=== PATIENT | male | born 1950 | race Caucasian/White ===

== ENCOUNTER 2024-09-26 21:08 | Inpatient (IN) | payer OTHER ==
[~2024-09-26] VITALS: Ht 182.9 cm; Wt 93.2 kg
[2024-09-26 23:05] LABS: PLATELET COUNT (AUTO) 261 K/uL (150-450); RED BLOOD CELL COUNT(AUTO) 3.80 MIL/uL (4.50-5.90); RED CELL DISTRIBUTION WIDTH 14.1 % (11.5-14.5); WHITE BLOOD COUNT (AUTO) 10.0 K/uL (4.5-11.0)
[2024-09-26 23:11] LABS: CALCIUM, TOTAL 8.7 mg/dL (8.8-10.5); CREATININE 1.27 mg/dL (0.60-1.30); GLOMERULAR FILTR. RATE CALC 56.0 mL/min (>60); GLUCOSE,RANDOM 134.0 mg/dL (70-110); SODIUM SERUM 136.0 mmol/L (136-145); UREA NITROGEN, BLOOD 24.0 mg/dL (7-18)
[2024-09-26 23:17] LABS: ASPARTATE AMINOTRANSFERASE 15.0 U/L (15-37); TOTAL PROTEIN, SERUM 7.0 g/dL (6.4-8.2)
[2024-09-27] MEDS: IOHEXOL 9 MG/ML 500 ML BOTTLE PO ONE
[2024-09-27] MEDS ORDERED: SODIUM CHLORIDE 0.9% 100 ML ONE (00:24)
[2024-09-27] MEDS: ONDANSETRON HCL 4 MG/2 ML VIAL IVP ONE (04:08)
[2024-09-27] MEDS: PIPERACILLIN SODIUM/TAZOBACTAM 4.5 GM in DEXTROSE 5%-WATER 100 ML IV ONE (04:49)
[2024-09-27] MEDS: SODIUM CHLORIDE 0.9% 1,000 ML IV ONE ×2 (04:49→12:54)
[2024-09-27 05:50] LABS: ALCOHOL, URINE DRUG SCREEN NEGATIVE (NEGATIVE); AMPHET/METH SCREEN,URINE NEGATIVE (NEGATIVE); BARBITURATE SCREEN, URINE NEGATIVE (NEGATIVE); CANNABINOID SCREEN,URINE NEGATIVE (NEGATIVE); COCAINE SCREEN,URINE NEGATIVE (NEGATIVE); METHADONE SCREEN, URINE NEGATIVE (NEGATIVE)
[2024-09-27 06:01] LABS: APPEARANCE,URINE CLEAR (CLEAR); GLUCOSE, URINE (UA) >=1000 mg/dL (NEGATIVE); LEUKOCYTE ESTERASE ,URINE MODERATE (NEGATIVE); NITRATE,URINE NEGATIVE (NEGATIVE); OCCULT BLOOD,URINE NEGATIVE (NEGATIVE); PH,URINE DRUG SCREEN 7.0 (5.0-8.0); SPECIFIC GRAVITIY, URINE 1.019 (1.003-1.030)
[2024-09-27 06:03] LABS: AMORPHOUS SEDIMENT,UR Few /LPF (None Seen); SQUAMOUS EPITHELIAL CELL,UR Rare /LPF (None Seen)
[2024-09-27] MEDS ORDERED: ZOLPIDEM TARTRATE 5 MG TABLET PO PRN (06:30)
[2024-09-27] MEDS ORDERED: ONDANSETRON HCL 4 MG/2 ML VIAL IVP PRN ×2 (06:30→10:00)
[2024-09-27] MEDS ORDERED: ACETAMINOPHEN 325 MG TABLET PO PRN ×2 (06:30→10:00)
[2024-09-27] MEDS ORDERED: MAGNESIUM HYDROXIDE SUSPENSION 30 ML UDCUP PO PRN (06:30)
[2024-09-27] MEDS ORDERED: BISACODYL 10 MG RECTAL RECTAL SUPPOSITORY PR PRN (06:30)
[2024-09-27] MEDS: MORPHINE SULFATE 2 MG/ML SYRINGE IVP PRN ×2 (07:46→13:37)
[2024-09-27] MEDS: HEPARIN SODIUM,PORCINE 5,000 UNITS/ML VIAL SQ SCH (07:48)
[2024-09-27] MEDS: VANCOMYCIN 1.75GM/WATER(PEG) 350 ML IV ONE (07:48)
[2024-09-27] MEDS: PANTOPRAZOLE SODIUM 40 MG DR TABLET PO SCH (07:49)
[2024-09-27] MEDS: DOCUSATE SODIUM 100 MG CAPSULE PO SCH ×2 (07:49→20:11)
[2024-09-27] MEDS ORDERED: DEXTROSE 50%-WATER 25 GM/50 ML SYRINGE IVP PRN (10:00)
[2024-09-27] MEDS ORDERED: SODIUM CHLORIDE 0.9% 500 ML IV ONE (11:21)
[2024-09-27 12:10] LABS: GLUCOMETER DEV NAME(LOC) 6S.1D; GLUCOSE,POINT OF CARE 128 MG/DL (70-110)
[2024-09-27] MEDS ORDERED: DICL100G60 TP (12:38)
[2024-09-27] MEDS ORDERED: INSLAN SQ (12:38)
[2024-09-27] MEDS ORDERED: FERR325T27 PO (12:38)
[2024-09-27] MEDS ORDERED: NITR0.4T52 SL (12:38)
[2024-09-27] MEDS ORDERED: AMLO-257 PO (12:38)
[2024-09-27] MEDS ORDERED: ROPI2TAB26 PO (12:38)
[2024-09-27] MEDS ORDERED: ACET-2247 PO (12:38)
[2024-09-27] MEDS ORDERED: COLL1PAC16 TP (12:38)
[2024-09-27] MEDS ORDERED: PREG75 PO (12:38)
[2024-09-27] MEDS ORDERED: MORP-130 PO (12:38)
[2024-09-27] MEDS ORDERED: MAGN400T57 PO (12:38)
[2024-09-27] MEDS ORDERED: POLY17PO47 PO (12:38)
[2024-09-27] MEDS ORDERED: ATOR40TA28 PO (12:38)
[2024-09-27] MEDS ORDERED: EMPA10TA3 PO (12:38)
[2024-09-27] MEDS ORDERED: PHEN28OI9 TP (12:38)
[2024-09-27] MEDS ORDERED: SENN-376 PO (12:38)
[2024-09-27] MEDS ORDERED: LEVA15HF3 PO (12:38)
[2024-09-27] MEDS ORDERED: CAPS60CR3 TP (12:38)
[2024-09-27] MEDS ORDERED: LOPE-232 PO (12:38)
[2024-09-27] MEDS ORDERED: CARV3 PO (12:38)
[2024-09-27] MEDS ORDERED: LACT10SO85 PO (12:38)
[2024-09-27] MEDS ORDERED: ONDA-104 PO (12:38)
[2024-09-27] MEDS ORDERED: PANT-31 PO (12:38)
[2024-09-27] MEDS ORDERED: LOSA-382 PO (12:38)
[2024-09-27] MEDS ORDERED: OMEG100033 PO (12:38)
[2024-09-27] MEDS ORDERED: HYPR15DR24 OU (12:38)
[2024-09-27] MEDS ORDERED: ASPI-1450 PO (12:38)
[2024-09-27] MEDS ORDERED: DOCU-385 PO (12:38)
[2024-09-27] MEDS ORDERED: LIDO-57 TP (12:38)
[2024-09-27] MEDS ORDERED: FINA-27 PO (12:38)
[2024-09-27] MEDS ORDERED: TRIA16.911 NASAL (12:45)
[2024-09-27] MEDS ORDERED: TERA2CAP10 PO (12:45)
[2024-09-27] MEDS ORDERED: TIMO5DRO20 OU (12:45)
[2024-09-27] MEDS ORDERED: TAMS0.4C94 PO (12:45)
[2024-09-27] MEDS ORDERED: TIOT185 IH (12:45)
[2024-09-27] MEDS: PIPERACILLIN/TAZO 3.375 GM/D5W 50 ML IV SCH (12:54)
[2024-09-27] MEDS: PEG 3350/NA SULF,BICARB,CL/KCL 4000 ML SOLUTION PO ONE (13:58)
[2024-09-27] MEDS: INSULIN LISPRO 100 UNITS/ML SQ PRN (17:21)
[2024-09-27 18:40] LABS: GLUCOMETER DEV NAME(LOC) 6S.1D; GLUCOSE,POINT OF CARE 197 MG/DL (70-110)
[2024-09-27 19:45] VITALS: BP 125/69; PULSE 61; RESP 20; TEMP 97.5; O2SAT 100
[2024-09-27] MEDS: PREGABALIN 75 MG CAPSULE PO SCH (20:10)
[2024-09-27] MEDS: VANCOMYCIN 750 MG/WATER(PEG) 150 ML IV SCH (20:10)
[2024-09-27] MEDS: TERAZOSIN HCL 2 MG CAPSULE PO SCH (20:11)
[2024-09-27 22:41] LABS: GLUCOMETER DEV NAME(LOC) 6S.2; GLUCOSE,POINT OF CARE 151 MG/DL (70-110)
[2024-09-28 04:45] VITALS: BP 126/63; PULSE 69; RESP 20; TEMP 97.5; O2SAT 100
[2024-09-28 07:14] LABS: PLATELET COUNT (AUTO) 227 K/uL (150-450); RED BLOOD CELL COUNT(AUTO) 3.75 MIL/uL (4.50-5.90); RED CELL DISTRIBUTION WIDTH 13.8 % (11.5-14.5); WHITE BLOOD COUNT (AUTO) 6.1 K/uL (4.5-11.0)
[2024-09-28 07:19] LABS: CALCIUM, TOTAL 8.5 mg/dL (8.8-10.5); CREATININE 1.10 mg/dL (0.60-1.30); GLOMERULAR FILTR. RATE CALC > 60 mL/min (>60); GLUCOSE,RANDOM 123 mg/dL (70-110); SODIUM SERUM 137 mmol/L (136-145); UREA NITROGEN, BLOOD 12 mg/dL (7-18)
[2024-09-28 07:21] LABS: GLUCOMETER DEV NAME(LOC) 6S.2; GLUCOSE,POINT OF CARE 146 MG/DL (70-110)
[2024-09-28] MEDS: PANTOPRAZOLE SODIUM 40 MG/VIAL IVP SCH (07:42)
[2024-09-28 07:55] VITALS: BP 128/72; PULSE 71; RESP 20; TEMP 97.5; O2SAT 100
[2024-09-28] MEDS: VANCOMYCIN 1GM/WATER(PEG/NADA) 200 ML IV SCH (08:50)
[2024-09-28] MEDS: HYDROCODONE/ACETAMINOPHEN 5-325 MG TABLET PO PRN (11:35)
[2024-09-28 14:16] LABS: GLUCOMETER DEV NAME(LOC) 6S.2; GLUCOSE,POINT OF CARE 150 MG/DL (70-110)
[2024-09-28] MEDS ORDERED: RINGERS SOLUTION,LACTATED 1,000 ML IV ONE (14:41)
[2024-09-28] MEDS: ETHYL ALCOHOL 62% ANTISEPTIC NASAL SANITIZER 0.6 ML AMPUL NASAL ONE (14:45)
[2024-09-28] MEDS: CHLORHEXIDINE GLUCONATE 2% TOWELETTE [2'S/6'S] TP ONE (14:45)
[2024-09-28] MEDS ORDERED: FentaNYL CITRATE PF 100 MCG/2 ML VIAL IVP PRN (15:45)
[2024-09-28] MEDS ORDERED: MEPERIDINE-PF 25 MG/ML VIAL IVP PRN (15:45)
[2024-09-28 19:50] VITALS: BP 143/77; PULSE 65; RESP 18; TEMP 97.5; O2SAT 100
[2024-09-28] MEDS: OXYGEN THERAPY IH SCH (20:00)
[2024-09-29 00:40] LABS: GLUCOMETER DEV NAME(LOC) 6S.2; GLUCOSE,POINT OF CARE 243 MG/DL (70-110)
[2024-09-29 04:23] VITALS: BP 115/60; PULSE 62; RESP 18; TEMP 98; O2SAT 100
[2024-09-29 06:21] LABS: GLUCOMETER DEV NAME(LOC) 6S.2; GLUCOSE,POINT OF CARE 204 MG/DL (70-110)
[2024-09-29 06:21] LABS: GLUCOMETER DEV NAME(LOC) 6N.2C; GLUCOSE,POINT OF CARE 144 MG/DL (70-110)
[2024-09-29 06:59] LABS: PLATELET COUNT (AUTO) 233 K/uL (150-450); RED BLOOD CELL COUNT(AUTO) 3.63 MIL/uL (4.50-5.90); RED CELL DISTRIBUTION WIDTH 13.9 % (11.5-14.5); WHITE BLOOD COUNT (AUTO) 7.6 K/uL (4.5-11.0)
[2024-09-29 07:06] LABS: CALCIUM, TOTAL 8.2 mg/dL (8.8-10.5); CREATININE 0.98 mg/dL (0.60-1.30); GLOMERULAR FILTR. RATE CALC > 60 mL/min (>60); GLUCOSE,RANDOM 198 mg/dL (70-110); SODIUM SERUM 134 mmol/L (136-145); UREA NITROGEN, BLOOD 9 mg/dL (7-18)
[2024-09-29 08:24] VITALS: BP 135/84; PULSE 60; RESP 18; TEMP 98.1; O2SAT 100
[2024-09-29] MEDS ORDERED: FentaNYL CITRATE PF 100 MCG/2 ML VIAL IM ONE (10:24)
[2024-09-29] MEDS ORDERED: PROPOFOL 1% 20 ML VIAL IVP ONE (10:33)
[2024-09-29] MEDS ORDERED: SUGAMMADEX SODIUM 200 MG/2 ML VIAL IVP ONE (10:33)
[2024-09-29] MEDS ORDERED: DEXAMETHASONE SOD PHOS 4 MG/ML VIAL IVP ONE (10:33)
[2024-09-29] MEDS ORDERED: ONDANSETRON HCL 4 MG/2 ML VIAL IVP ONE (10:33)
[2024-09-29] MEDS ORDERED: ROCURONIUM BROMIDE 10 MG/ML 5 ML VIAL IV ONE (10:33)
[2024-09-29] MEDS ORDERED: LIDOCAINE/PF 2% 5 ML VIAL ID ONE (10:33)
[2024-09-29 19:29] VITALS: BP 142/66; PULSE 63; RESP 18; TEMP 97.9; O2SAT 100
[2024-09-29 20:16] LABS: GLUCOMETER DEV NAME(LOC) 6N.2C; GLUCOSE,POINT OF CARE 284 MG/DL (70-110)
[2024-09-29 20:16] LABS: GLUCOMETER DEV NAME(LOC) 6N.2C; GLUCOSE,POINT OF CARE 178 MG/DL (70-110)
[2024-09-29 21:10] LABS: GLUCOMETER DEV NAME(LOC) 6S.1D; GLUCOSE,POINT OF CARE 232 MG/DL (70-110)
[2024-09-30 04:38] VITALS: BP 127/67; PULSE 56; RESP 18; TEMP 97.9; O2SAT 98
[2024-09-30 05:21] LABS: GLUCOMETER DEV NAME(LOC) 6S.1D; GLUCOSE,POINT OF CARE 150 MG/DL (70-110)
[2024-09-30 07:25] LABS: PLATELET COUNT (AUTO) 219 K/uL (150-450); RED BLOOD CELL COUNT(AUTO) 3.76 MIL/uL (4.50-5.90); RED CELL DISTRIBUTION WIDTH 13.6 % (11.5-14.5); WHITE BLOOD COUNT (AUTO) 6.2 K/uL (4.5-11.0)
[2024-09-30 07:45] LABS: CALCIUM, TOTAL 8.5 mg/dL (8.8-10.5); CREATININE 1.19 mg/dL (0.60-1.30); GLOMERULAR FILTR. RATE CALC 60.0 mL/min (>60); GLUCOSE,RANDOM 127.0 mg/dL (70-110); SODIUM SERUM 139.0 mmol/L (136-145); UREA NITROGEN, BLOOD 11.0 mg/dL (7-18)
[2024-09-30 08:26] VITALS: BP 134/70; PULSE 55; RESP 18; TEMP 97.5; O2SAT 100
[2024-09-30] MEDS: SENNOSIDES 8.6 MG TABLET PO SCH (14:23)
[2024-09-30] MEDS: POLYETHYLENE GLYCOL 3350 17 GM PACKET PO SCH (14:23)
[2024-09-30 18:30] LABS: GLUCOMETER DEV NAME(LOC) 6S.2; GLUCOSE,POINT OF CARE 186 MG/DL (70-110)
[2024-09-30 18:30] LABS: GLUCOMETER DEV NAME(LOC) 6S.2; GLUCOSE,POINT OF CARE 201 MG/DL (70-110)
[2024-09-30 19:58] VITALS: BP 126/61; PULSE 57; RESP 18; TEMP 97.3; O2SAT 97
[2024-09-30 22:21] LABS: GLUCOMETER DEV NAME(LOC) 6S.2; GLUCOSE,POINT OF CARE 194 MG/DL (70-110)
[2024-10-01 04:40] VITALS: BP 119/63; PULSE 57; RESP 18; TEMP 97.7; O2SAT 97
[2024-10-01] MEDS ORDERED: SODIUM CHLORIDE 0.9% 250 ML IV ONE (05:06)
[2024-10-01 05:25] LABS: GLUCOMETER DEV NAME(LOC) 6S.2; GLUCOSE,POINT OF CARE 145 MG/DL (70-110)
[2024-10-01 07:49] LABS: CALCIUM, TOTAL 8.5 mg/dL (8.8-10.5); CREATININE 1.27 mg/dL (0.60-1.30); GLOMERULAR FILTR. RATE CALC 56.0 mL/min (>60); GLUCOSE,RANDOM 149.0 mg/dL (70-110); SODIUM SERUM 137.0 mmol/L (136-145); UREA NITROGEN, BLOOD 11.0 mg/dL (7-18)
[2024-10-01 09:30] VITALS: BP 152/84; PULSE 57; RESP 18; TEMP 97.7; O2SAT 97
[2024-10-01] MEDS ORDERED: PANT-31 PO (10:22)
[2024-10-01 20:15] LABS: GLUCOMETER DEV NAME(LOC) 6N.2C; GLUCOSE,POINT OF CARE 164 MG/DL (70-110)
[2024-10-01] MEDS ORDERED: SULFAMETHOX/TRIMETH DS 800-160 MG/TABLET PO SCH (21:00)
== END 2024-10-01 13:13 | DRG 395 ==
LOC: EMS 21:08 → EDH 09-27 05:54 → UNDOADMIN 09-27 06:18 → 6S 09-27 09:38 → EDH 09-27 09:38 → 6S 09-27 09:56 → UNDOADMIN 09-27 09:56
PROVIDERS: ADMIT Internal Medicine; ATTEND Internal Medicine
PROC: 0D9P3ZZ Drainage of Rectum, Percutaneous Approach (ICD-10-PCS; principal; 2024-09-28 15:00)
DX: K61.1 Rectal abscess (principal); E11.9 Type 2 diabetes mellitus without complications; I10 Essential (primary) hypertension; R33.8 Other retention of urine; J44.9 Chronic obstructive pulmonary disease, unspecified; N40.1 Benign prostatic hyperplasia with lower urinary tract symptoms; K59.09 Other constipation; Z83.3 Family history of diabetes mellitus; Z88.8 Allergy status to other drugs, medicaments and biological substances
CPT/HCPCS: 74177; 80048; 80076; 80202; 80307; 81001; 82962; 83880; 85025; 87070; 87081; 87205; 96374; 96375; 99285; J1100; J1171; J1644; J2270; J2405; J2470; J2543; J2704; J3010; J3490; J7040; J7050; J7060; J7120